=== PATIENT | female | born 1940 | race Caucasian/White ===

== ENCOUNTER 2020-03-03 16:46 | Emergency (ER) | payer MEDICARE ==
[~2020-03-03] VITALS: Ht 157.5 cm; Wt 51.0 kg
[2020-03-03] MEDS ORDERED: KETOROLAC 30 MG/1 ML ONE (17:13)
--- NOTE | 2020-03-03 17:14 | NUR ---
THIS IS AN 79 YO FEMALE COMING IN FOR RIGHT HIP PAIN AFTER [facility] THURSDAY MORNING GETTING OUT OF SHOWER. DENIES HITTING HEAD OR LOC, ONLY COMPLAINT IN TENDERNESS TO RIGHT HIP, INCREASED PAIN WITH PALPATION. ABLE TO AMBULATE. A&OX4, [facility] INTACT, G[facility]15, MOVES ALL EXTREMITIES WELL. FAMILY IN ROOM. CALL LIGHT IN REACH, MONITORING IN PLACE. CALL LIGHT IN REACH
--- NOTE | 2020-03-03 17:16 | NUR ---
PATIENT TO XRAY
[2020-03-03] MEDS ORDERED: KETOROLAC 30 MG/1 ML IM ONE (17:30)
--- NOTE | 2020-03-03 17:32 | NUR ---
MEDICATED PER EMAR
[2020-03-03 17:45] VITALS: BP 120/65
--- NOTE | 2020-03-03 17:56 | NUR ---
Patient/Caregiver given discharge instructions and they have confirmed that they understand the instructions. Patient ambulatory with steady gait in room, wheeled to discharge
== END 2020-03-03 17:58 | disposition home or self-care (01) ==
LOC: ED 17:39
DX: S70.01XA Contusion of right hip, initial encounter (principal); W01.0XXA Fall on same level from slipping, tripping and stumbling without subsequent striking against object, initial encounter; Y93.89 Activity, other specified; Y92.009 Unspecified place in unspecified non-institutional (private) residence as the place of occurrence of the external cause; Y99.8 Other external cause status
CPT/HCPCS: 73502; 96372; 99283; J1885